=== PATIENT | male | born 1965 | race Caucasian/White ===

== ENCOUNTER 2018-10-14 09:11 | Emergency (ER) | payer OTHER, SELFPAY ==
[2018-10-14 09:11] VITALS: BP 124/100; PULSE 108; RESP 18; TEMP 36.6; O2SAT 99; BMI 21.2
--- NOTE | 2018-10-14 09:45 | RAD_ITS ---
STUDY: X-RAY - RIGHT SHOULDER REASON FOR EXAM: Male, 53 years old. Pain following a lifting injury. TECHNIQUE: 2 view(s) of the shoulder. COMPARISON: None. FINDINGS: Normal glenohumeral articulation. Normal acromioclavicular joint. Normal acromion. Normal humeral head and visualized proximal humerus. The soft tissue structures are unremarkable. Normal visualized pulmonary apex. RAD/Shoulder min 2 Views IMPRESSION: Normal x-ray examination of the shoulder. Electronically Signed: Ten Foley MD at 10:08 EST Tel [phone], Service support ,
--- NOTE | 2018-10-14 10:17 | ED.VISSUMM ---
- ER Visit Summary Date of Service: 10/14/18 Chief Complaint: Right shoulder injury History of Present Illness: The patient is a 53 M [id number] presenting with a right shoulder injury. He bought a new house and was moving an appliance up the steps with his children this weekend and felt a pop in his right shoulder while trying to keep the appliance from falling off of the stairs and pulling to the right. He denies any direct trauma. He has no neck pain or back pain. The pain is mostly on the posterior aspect of his right shoulder and is worse with abduction above 90 degrees. He denies weakness or paresthesias. Physical Examination: Mild tenderness on palpation right shoulder posteriorly. Skin is intact. There is pain with range of motion but no instability or deformity. Strong distal pulse. No neck tenderness or thoracic tenderness. Test Results: Right shoulder x-ray was negative for fracture. Emergency Department Course and Treatment: He was placed on naproxen and Flexeril. He did not want a sling. He was referred to orthopedics for follow-up Treatment Plan: Follow-up with orthopedic surgeon Disposition: Home stable Impression: Initial encounter acute right shoulder strain This note was generated with [employer] dictation software. It may contain incorrect words, spelling, and punctuation that were not noted in review of the chart prior to signing ED Disposition - Plan for ED Patient: Chief Complaint: Back Instructions: Shoulder Problems Prescriptions: Ibuprofen [Motrin] 800 mg PO TID PRN PRN #20 tablet PRN Reason: Pain Cyclobenzaprine [Flexeril] 10 mg PO TID PRN #20 tablet PRN Reason: Muscle Spasm Referrals: Gaston Putnam DO [STAFF PHYSICIAN] -
--- NOTE | 2018-10-14 10:20 | ED.DCSUM_ITS ---
- ER Visit Summary Date of Service: 10/14/18 Chief Complaint: Right shoulder injury History of Present Illness: The patient is a 53 M [id number] presenting with a right shoulder injury. He bought a new house and was moving an appliance up the steps with his children this weekend and felt a pop in his right shoulder while trying to keep the appliance from falling off of the stairs and pulling to the right. He denies any direct trauma. He has no neck pain or back pain. The pain is mostly on the posterior aspect of his right shoulder and is worse with abduction above 90 degrees. He denies weakness or paresthesias. Physical Examination: Mild tenderness on palpation right shoulder posteriorly. Skin is intact. There is pain with range of motion but no instability or deformity. Strong distal pulse. No neck tenderness or thoracic tenderness. Test Results: Right shoulder x-ray was negative for fracture. Emergency Department Course and Treatment: He was placed on naproxen and Flexeril. He did not want a sling. He was referred to orthopedics for follow- up Treatment Plan: Follow-up with orthopedic surgeon Disposition: Home stable Impression: Initial encounter acute right shoulder strain This note was generated with [employer] dictation software. It may contain incorrect words, spelling, and punctuation that were not noted in review of the chart prior to signing ED Disposition - Plan for ED Patient: Chief Complaint: Back Instructions: Shoulder Problems Prescriptions: Ibuprofen [Motrin] 800 mg PO TID PRN PRN #20 tablet PRN Reason: Pain Cyclobenzaprine [Flexeril] 10 mg PO TID PRN #20 tablet PRN Reason: Muscle Spasm Referrals: Gaston Putnam DO [STAFF PHYSICIAN] -
[2018-10-14 11:02] VITALS: PULSE 89; RESP 17; O2SAT 97
--- OUTSIDE RECORDS SUMMARY | 2018-12-07 14:14 | XMS RPT_ITS ---
:1965 Author Organization [facility] Care Team Providers Name Role Phone LISA DUTTON (KIRAN) Attending Unavailable LINDEN BARBOUR Referring Unavailable LISA DUTTON (RAILROAD CAR REPAIRMAN) Attending Unavailable LINDEN BARBOUR Referring Unavailable LISA DUTTON (RAILROAD CAR REPAIRMAN) Referring Unavailable Linden Barbour Primary Care Unavailable Drew Arcos Attending Unavailable PROBLEMS PROBLEMS DATE TYPE CONDITION / CODE ATTENDING STATUS SOURCE 08/15/2018 Active Dizziness and NA Active [facility] giddiness / Main [place] R42(ICD-10) Repository 08/15/2018 Active Diarrhea, NA Active [facility] unspecified / Main [place] R19.7(ICD-10) Repository PROCEDURES PROCEDURES No Procedure Records FoundRESULTS RESULTS EMERGENCY DEPARTMENT Observed: 10/14/2018 Status: F Source: [place] SUMMARY 10:20 AM [facility] REPOSITORY [facility] Medical Records Department [address] [place] [address] Emergency Department Summary 10/14/18 1017 MR#: [id number] Acct: [id number] Name: STACI LR Rep #: [id number] : 1965 53 From: Vignesh Arcos MD PCP: Linden Stover DO Status: REG ER - ER Visit Summary Date of Service: 10/14/18 Chief Complaint: Right shoulder injury History of Present Illness: The patient is a 53 M [id number]-[id number] presenting with a right shoulder injury. He bought a new house and was moving an appliance up the steps with his children this weekend and felt a pop in his right shoulder while trying to keep the appliance from falling off of the stairs and pulling to the right. He denies any direct trauma. He has no neck pain or back pain. The pain is mostly on the posterior aspect of his right shoulder and is worse with abduction above 90 degrees. He denies weakness or paresthesias. Physical Examination: Mild tenderness on palpation right shoulder posteriorly. Skin is intact. There is pain with range of motion but no instability or deformity. Strong distal pulse. No neck tenderness or thoracic tenderness. Test Results: Right shoulder x-ray was negative for fracture. Emergency Department Course and Treatment: He was placed on naproxen and Flexeril. He did not want a sling. He was referred to orthopedics for follow-up Treatment Plan: Follow-up with orthopedic surgeon Disposition: Home stable Impression: Initial encounter acute right shoulder strain This note was generated with [employer] dictation software. It may contain incorrect words, spelling, and punctuation that were not noted in review of the chart prior to signing ED Disposition - Plan for ED Patient: Chief Complaint: Back Instructions: Shoulder Problems Prescriptions: Ibuprofen [Motrin] 800 mg PO TID PRN PRN #20 tablet PRN Reason: Pain Cyclobenzaprine [Flexeril] 10 mg PO TID PRN #20 tablet PRN Reason: Muscle Spasm Referrals: Gaston Putnam DO [STAFF PHYSICIAN] - What to do if you have Problems For any increased pain, shortness of breath, bleeding, nausea or vomiting, chest pain, or any unexpected problems, contact your Primary Care Provider. Call [facility] ([phone]) or report to the closest Emergency Room. Call 911 if necessary. 10/14/18 1020 <Electronically signed by Vignesh Arcos MD> Date Vignesh Arcos MD Cosigner Signature (If Indicated): Date CC: Linden Stover DO SHOULDER MIN 2 VIEWS Observed: 10/14/2018 Status: F Source: [place] 9:38 AM [facility] REPOSITORY [facility] Imaging Services [address] [place] [address] Shoulder min 2 Views MR#: [id number] Acct: [id number] Name: STACI LR Rep #: [id number] : 1965 M 53 From: Ten Foley MD PCP: Linden Stover DO Status: REG ER Study: Shoulder min 2 Views Date of Exam: 10/14/18 Exam# [id number] Ordering Dr: Vignesh Arcos MD STUDY: X-RAY - RIGHT SHOULDER REASON FOR EXAM: Male, 53 years old. Pain following a lifting injury. TECHNIQUE: 2 view(s) of the shoulder. COMPARISON: None. FINDINGS: Normal glenohumeral articulation. Normal acromioclavicular joint. Normal acromion. Normal humeral head and visualized proximal humerus. The soft tissue structures are unremarkable. Normal visualized pulmonary apex. RAD/Shoulder min 2 Views IMPRESSION: Normal x-ray examination of the shoulder. Electronically Signed: Ten Foley MD at 10:08 EST Tel [phone], Service support , CC: Drew Arcos MD; Linden Stover DO Machine Maintenance Technician: Signed CBC AND DIFFERENTIAL Collected: 08/15/2018 Status: F Source: [place] 12:57 PM [facility] REPOSITORY TYPE CODE TESTS RESULT OUT OF REFERENCE UNITS RANGE LAB WBC 3.70-11.00 k/uL WBC High 12.74 LAB RBC 4.20-6.00 m/uL RBC 5.32 LAB HGB 13.0-17.0 g/dL Hemoglobin 15.5 LAB HCT 39.0-51.0 % Hematocrit 46.3 LAB MCV 80.0-100.0 fL MCV 87.0 LAB MCH 26.0-34.0 pG MCH 29.1 LAB MCHC 30.5-36.0 g/dL MCHC 33.5 LAB RDWCV 11.5-15.0 % RDW-CV 13.6 LAB PLTCT 150-400 k/uL Platelet Count 370 LAB MPV 9.0-12.7 fL MPV 10.3 LAB ANEUT % Neut% 63.3 LAB AANEUT 1.45-7.50 k/uL Abs Neut High 8.06 LAB ALYMP % Lymph% 28.4 LAB AALYMP 1.00-4.00 k/uL Abs Lymph 3.62 LAB AMONO % [place]% 6.7 LAB AAMONO <0.87 k/uL Abs [place] 0.85 LAB AEOS % Eosin% 0.5 LAB AAEOS <0.46 k/uL Abs Eosin 0.07 LAB ABASO % Baso% 1.1 LAB AABASO <0.11 k/uL Abs Baso High 0.14 LAB AUNRBC 0 /100 WBC NRBCs 0.0 LAB ABNRBC <0.01 k/uL Absolute nRBC <0.01 LAB DTYP DTYPE Auto Diff Performed By: #### CBCDIF, CMP, TSH #### [facility] Laboratories [address] [place] [address] COMP METABOLIC PANEL Collected: 08/15/2018 Status: F Source: [place] 12:57 PM [facility]IN [facility] REPOSITORY TYPE CODE TESTS RESULT OUT OF REFERENCE UNITS RANGE LAB TP 6.3-8.0 g/dL Protein, Total 7.3 LAB ALB 3.9-4.9 g/dL Albumin 4.5 LAB CA 8.5-10.2 mg/dL Calcium, Total 9.4 LAB TBIL 0.2-1.3 mg/dL Bilirubin, Total 0.5 LAB ALKP 38-113 U/L Alkaline Phosphatase 70 LAB AST 14-40 U/L AST 14 LAB GLU 74-99 mg/dL Glucose High 118 Result Comment: The [place] [employer] (ADA) provides guidance for cutoff values for fasting glucose and random glucose. The ADA defines fasting as no caloric intake for at least 8 hours. Fas ting plasma glucose results between 100 to 125 mg/dL indicate increased risk for diabetes (prediabetes). Fasting plasma glucose results greater than or equal to 126 mg/dL meet the criteria for diagnosis of diabetes. In the absence of unequivocal hyperglycemia, results should be confirmed by repeat testing. In a patient with classic symptoms of hyperglycemia or hyperglycemic crisis, random plasma glucose results greater than or equal to 200 mg/dL meet the criteria for diagnosis of diabetes. Reference: Standards of Medical Care in Diabetes 2016, [place] [employer]. Diabetes Care. 2016.39(Suppl 1). LAB BUN 9-24 mg/dL BUN Low 8 LAB CRET 0.73-1.22 mg/dL Creatinine 0.94 LAB NA 136-144 mmol/L Sodium 141 LAB K 3.7-5.1 mmol/L Potassium 4.0 LAB CL 97-105 mmol/L Chloride 101 LAB CO2 22-30 mmol/L CO2 23 LAB AGAP 9-18 mmol/L Anion Gap 17 LAB ALT 10-54 U/L ALT 17 LAB GFRAA eGFR- Amer. >60 LAB GFRNAA . eGFR-All Other Races >60 Result Comment: eGFR (Estimated GFR) Units of measure: mL/min/1.73 meters squared eGFR is derived from the reexpressed MDRD Study equation using the following parameters: serum creatinine, age, gender and race. The creatinine assay has been calibrated to be traceable to IDMS. An eGFR <60 mL/min/1.73m2 for >3 months is consistent with chronic kidney disease. Refer to KDOQI guidelines for clinical interpretation. In patients with unstable renal function, e.g. those with acute kidney injury, the eGFR may not accurately reflect actual GFR. Performed By: #### CBCDIF, CMP, TSH #### [facility] [address] [place] [id number] TSH Collected: 08/15/2018 Status: F Source: [place] 12:57 PM [facility] REPOSITORY TYPE CODE TESTS RESULT OUT OF RANGE REFERENCE UNITS LAB TSH 0.400-5.500 uU/mL TSH 0.867 Performed By: #### CBCDIF, CMP, TSH #### [facility] [address] [place], [place] [address] PROGRESS Observed: 08/13/2018 Status: COMPLETED Source: [place] 9:02 AM [facility] REPOSITORY HNO ID: [id number] Author: Lisa Brooks (Cullen Dutton Service: (none) Author Type: Nurse Practitioner Type: Progress Notes Filed: 08/13/2018 9:20 AM Note Text: HPI/CC: Staci Lr is a 52 year old male who presents with concern of feeling unbalanced and room was spinning. Started gradually for 7 days. This is something I had in the past and won't go away. Associated symptoms include nausea, vomiting x 1, watery diarrhea and headache, subjective fever, chills, decreased appetite. Denies eyes jumping, palpitations, syncope, ear pain, sore throat, difficulty breathing , urinary symptoms and muscle or joint aches., blood in stools Symptoms are intermittent and last a few minutes and made worse by standing. Symptoms are alleviated by nothing. Recent events include no obvious precipitating event/injury.. Treatments tried include nothing REVIEW OF SYSTEMS As above Reviewed PMHx, PSHx, social Hx, medications and allergies. PHYSICAL EXAMINATION: BP 118/88 Pulse 96 Resp 16 Wt 72.6 kg (160 lb) BMI 21.11 kg/m? General appearance: Well appearing, alert, in no acute distress, well-hydrated, well nourished. Head: Normocephalic, no masses, lesions, tenderness or abnormalities Eyes: Anicteric sclera. Pupils are equally round and reactive to light. Extraocular movements are intact. Ears: External ears normal, canals clear, TM's normal Nose/Sinuses: Nares normal, septum midline, mucosa normal, no drainage or sinus tenderness Oropharynx: Lips, mucosa, and tongue normal, teeth and gums normal, oropharynx normal Neck: Supple, no adenopathy; thyroid symmetric, normal size, no bruits Lungs: Lungs clear to auscultation. No wheezing, rhonchi, rales Heart:: S1 and S2 normal, RRR without murmur, gallop, or rubs. No ectopy Extremities: No deformities, edema, skin discoloration, clubbing or cyanosis. Good capillary refill. Musculoskeletal: Spine range of motion normal. Muscular strength intact, No joint swelling, deformity, or tenderness Peripheral pulses: Normal Neuro: Awake, alert and oriented x 3, Cranial nerves II-XII grossly intact, Reflexes symmetrical, Normal gait and No involuntary motions. ASSESSMENT/PLAN: 1. Viral gastroenteritis - ICD9: 008.8, ICD10: A08.4 - encourage fluids and rest - see patient instructions - work excuse provided - ONDANSETRON 4 MG DISINTEGRATING TABLET Lisa Dutton APRN.CNP CNOV Observed: 08/13/2018 Status: COMPLETED Source: [place] 8:20 AM [facility] REPOSITORY [facility] STACI [facility] ([id number]) 1965 M Date Time Provider Department 08/13/18 8:20 AM L[facility] DUTTON [facility]KIRAN) [facility] During your visit today, we recorded the following information about you: Pulse Respiration Blood pressure Weight 96/minute 16/minute 118/88 72.6 kg Lisa Dutton APRN.CNP 08/13/2018 9:20 AM Signed HPI/CC: Staci Lr is a 52 year old male who presents with concern of feeling unbalanced and room was spinning. Started gradually for 7 days. This is something I had in the past and won't go away. Associated symptoms include nausea, vomiting x 1, watery diarrhea and headache, subjective fever, chills, decreased appetite. Denies eyes jumping, palpitations, syncope, ear pain, sore throat, difficulty breathing , urinary symptoms and muscle or joint aches., blood in stools Symptoms are intermittent and last a few minutes and made worse by standing. Symptoms are alleviated by nothing. Recent events include no obvious precipitating event/injury.. Treatments tried include nothing REVIEW OF SYSTEMS As above Reviewed PMHx, PSHx, social Hx, medications and allergies. PHYSICAL EXAMINATION: BP 118/88 Pulse 96 Resp 16 Wt 72.6 kg (160 lb) BMI 21.11 kg/m? General appearance: Well appearing, alert, in no acute distress, well-hydrated, well nourished. Head: Normocephalic, no masses, lesions, tenderness or abnormalities Eyes: Anicteric sclera. Pupils are equally round and reactive to light. Extraocular movements are intact. Ears: External ears normal, canals clear, TM's normal Nose/Sinuses: Nares normal, septum midline, mucosa normal, no drainage or sinus tenderness Oropharynx: Lips, mucosa, and tongue normal, teeth and gums normal, oropharynx normal Neck: Supple, no adenopathy; thyroid symmetric, normal size, no bruits Lungs: Lungs clear to auscultation. No wheezing, rhonchi, rales Heart:: S1 and S2 normal, RRR without murmur, gallop, or rubs. No ectopy Extremities: No deformities, edema, skin discoloration, clubbing or cyanosis. Good capillary refill. Musculoskeletal: Spine range of motion normal. Muscular strength intact, No joint swelling, deformity, or tenderness Peripheral pulses: Normal Neuro: Awake, alert and oriented x 3, Cranial nerves II-XII grossly intact, Reflexes symmetrical, Normal gait and No involuntary motions. ASSESSMENT/PLAN: 1. Viral gastroenteritis - ICD9: 008.8, ICD10: A08.4 - encourage fluids and rest - see patient instructions - work excuse provided - ONDANSETRON 4 MG DISINTEGRATING TABLET ALIDA Avila APRN.CNP 08/13/2018 9:13 AM Signed Home instructions for Viral Gastroenteritis TREATMENT - Drink 6-8 or more 8 ounce glasses of non-carbonated beverages to stay hydrated. - Eat a bland diet until your symptoms resolve. A bland diet may include boiled starches, boiled vegetables, cereals, crackers, bananas, soup, plain rice, or applesauce. BRAT DIET (may eat any of the following as tolerated) Bananas Applesauce Wink Saltine Crackers Animal Crackers Pretzels Oatmeal Unsweetened Dry Cereal (Rice Krispies, Cheerios) Plain Baked or Boiled Potato Plain White Rice Plain Noodles All clear liquid listed below CLEAR LIQUID DIET (need to drink 2 ounces total every half hour) Broth Jello Popsicles Pedialyte Gatorade NO Juices NO Milk NO Dairy Products Call if urine output is decreased or you develop dry mucous membranes, or lethargy. - If you do not have a fever you may take lopermide (Immodium) or (Bismuth subsalicylate (Pepto-Bismol) over the counter as instructed on box label. - Rest - Take your temperature every 4 hours while you have symptoms. CONTACT YOUR DOCTOR OR GO TO THE EMERGENCY DEPARTMENT IF: - Your pain gets worse or concentrates in only one area. - You vomit blood or find blood in your stool or urine. - You are dizzy or faint. - Your abdomen becomes swollen or your bowel movements stop. - You have a temperature over 102 F (39 C). - You have trouble passing urine. - You feel short of breath. PREVENTION - Wash your hands before and after using the bathroom, before and after preparing food, after changing a diaper or assisting others with bathroom needs. Please follow up in 3-5 days or before if symptoms are worse. Lisa Dutton APRN.RAILROAD CAR REPAIRMAN Referring Provider: LINDEN BARBOUR [[id number]] Allergies As of Date: 08/13/2018 Noted Allergy Reaction DARVOCET-N 100 (PROPOXYPHENE N-AC*03/07/2010 7 - Swelling Comments: pt stated swelling of throat PREVACID (LANSOPRAZOLE) 10/30/2005 Comments: cause increased stomach pain and headache TRAMADOL 03/15/2011 8 - GI Upset 14 - Other: See Comments Comments: dizziness VICODIN (HYDROCODONE-ACETAMINOPHE*03/15/2011 8 - GI Upset Date Reviewed: 08/13/2018 Reviewed by: Lenin Vicente LPN - Fully Assessed Reason for Visit: Dizziness [36] Cmt: started last week, worse in the last 3 days Nausea [70] Cmt: with vomiting x1 yesterday Anorexia [7] Primary Visit Diagnosis:Viral gastroenteritis [A08.4] Order(s):ondansetron orally disintegrating (ZOFRAN ODT) 4 mg disintegrating tabletTake 1 tablet by mouth every 6 hours as needed for Nausea/Vomiting.Disp: 30 tabletRfl: 0 Prescriptions as of 08/13/2018 Sig: ONDANSETRON 4 MG DISINTEGRATI* Take 1 tablet by mouth every * Problem List As Of Date 08/13/2018 Noted Resolved STERILIZATION [Z30.2] INVALID FOR* Tear of Medial Cartilage or Meniscus of Knee, C*INVALID FOR* Brachial neuritis or radiculitis NOS [M54.12] INVALID FOR* Chronic neck pain [M54.2, G89.29] INVALID FOR* DDD (degenerative disc disease), cervical [M50.*INVALID FOR* Cervical spondylosis [M47.812] INVALID FOR* Other instructions from your clinician: Home instructions for Viral Gastroenteritis TREATMENT - Drink 6-8 or more 8 ounce glasses of non-carbonated beverages to stay hydrated. - Eat a bland diet until your symptoms resolve. A bland diet may include boiled starches, boiled vegetables, cereals, crackers, bananas, soup, plain rice, or applesauce. BRAT DIET (may eat any of the following as tolerated) Bananas Applesauce Wink Saltine Crackers Animal Crackers Pretzels Oatmeal Unsweetened Dry Cereal (Rice Krispies, Cheerios) Plain Baked or Boiled Potato Plain White Rice Plain Noodles All clear liquid listed below CLEAR LIQUID DIET (need to drink 2 ounces total every half hour) Broth Jello Popsicles Pedialyte Gatorade NO Juices NO Milk NO Dairy Products Call if urine output is decreased or you develop dry mucous membranes, or lethargy. - If you do not have a fever you may take lopermide (Immodium) or (Bismuth subsalicylate (Pepto-Bismol) over the counter as instructed on box label. - Rest - Take your temperature every 4 hours while you have symptoms. CONTACT YOUR DOCTOR OR GO TO THE EMERGENCY DEPARTMENT IF: - Your pain gets worse or concentrates in only one area. - You vomit blood or find blood in your stool or urine. - You are dizzy or faint. - Your abdomen becomes swollen or your bowel movements stop. - You have a temperature over 102 F (39 C). - You have trouble passing urine. - You feel short of breath. PREVENTION - Wash your hands before and after using the bathroom, before and after preparing food, after changing a diaper or assisting others with bathroom needs. Please follow up in 3-5 days or before if symptoms are worse. Lisa Dutton APRN.KIRAN Prescriptions ordered this encounter Disp Refills Start End ONDANSETRON 4 MG DISINTEGRATING TABL* 30 t* 0 08/13/2018 Route: ORAL Sig: Take 1 tablet by mouth every 6 hours as needed for Nausea/Vomiting. Letter Text Lisa Dutton CNP [address] [place], [place] [address] 08/13/2018 Staci Lr [facility]# [id number] [facility] [address] [place] [address] TO WHOM IT MAY CONCERN: This is to certify that Mr. Staci Lr has been under my care for illness and was unable to work from 08/11/2018 through 08/15/2018. Sincerely yours, Lisa Dutton CNP Encounter Status:Closed by LISA DUTTON CNP on 08/13/18 PROGRESS Observed: 01/23/2018 Status: COMPLETED Source: [place] 11:07 AM [facility] REPOSITORY H[place] ID: [id number] Author: Lisa Brooks (Kiran) KIRAN Dutton Service: (none) Author Type: Nurse Practitioner Type: Progress Notes Filed: 01/23/2018 11:11 AM Note Text: This note was created using Bracketr. Subjective Patient is a 52 year old male presenting with neck pain and back pain. Neck Pain Associated symptoms include weakness (to right UE). Pertinent negatives include no fever, leg pain, numbness, paresis, tingling or weight loss. Back Pain This is a new (acute on chronic) problem. Episode onset: 5 days ago. The problem occurs constantly. The problem has not changed since onset.The pain is associated with lifting heavy objects. Pain location: cervical. The quality of the pain is described as shooting and cramping. The pain does not radiate. The pain is moderate. The symptoms are aggravated by twisting and certain positions. Associated symptoms include weakness (to right UE). Pertinent negatives include no fever, no numbness, no weight loss, no bowel incontinence, no perianal numbness, no dysuria, no pelvic pain, no leg pain, no paresis and no tingling. He has tried nothing for the symptoms. Hx of DDD with cervical spine sx Review of Systems Constitutional: Negative for fever and weight loss. Gastrointestinal: Negative for bowel incontinence. Genitourinary: Negative for dysuria and pelvic pain. Musculoskeletal: Positive for back pain and neck pain. Neurological: Positive for weakness (to right UE). Negative for tingling and numbness. Objective BP 120/82 Pulse 96 Resp 16 Wt 73.5 kg (162 lb) BMI 21.37 kg/m2 Physical Exam Constitutional: He is oriented to person, place, and time. He appears well-developed and well-nourished. No distress. HENT: Head: Normocephalic and atraumatic. Eyes: Conjunctivae are normal. Neck: Normal range of motion. Cardiovascular: Normal rate, regular rhythm, S1 normal, S2 normal and normal heart sounds. No murmur heard. Pulmonary/Chest: Effort normal and breath sounds normal. Neurological: He is alert and oriented to person, place, and time. No cranial nerve deficit. Gait normal. ASSESSMENT/PLAN: 1. Neck pain - ICD9: 723.1, ICD10: M54.2 (primary diagnosis) 2. Chronic neck pain - ICD9: 723.1, 338.29, ICD10: M54.2, G89.29 Acute on chronic neck pain - PREDNISONE 10 MG TABLET - CYCLOBENZAPRINE 10 MG TABLET - recommend CPE for HM and routine care Lisa Dutton CNP CNOV Observed: 01/23/2018 Status: COMPLETED Source: [place] 11:00 AM [facility] REPOSITORY Office Visit ([facility]) STACI LR ([id number]) 1965 M Date Time Provider Department 01/23/18 11:00 AM LISA DUTTON (KIRAN) [facility] During your visit today, we recorded the following information about you: Pulse Respiration Blood pressure Weight 96/minute 16/minute 120/82 73.5 kg Lisa Dutton CNP, CNP 01/23/2018 11:11 AM Signed This note was created using alife studios incriter. Subjective Patient is a 52 year old male presenting with neck pain and back pain. Neck Pain Associated symptoms include weakness (to right UE). Pertinent negatives include no fever, leg pain, numbness, paresis, tingling or weight loss. Back Pain This is a new (acute on chronic) problem. Episode onset: 5 days ago. The problem occurs constantly. The problem has not changed since onset.The pain is associated with lifting heavy objects. Pain location: cervical. The quality of the pain is described as shooting and cramping. The pain does not radiate. The pain is moderate. The symptoms are aggravated by twisting and certain positions. Associated symptoms include weakness (to right UE). Pertinent negatives include no fever, no numbness, no weight loss, no bowel incontinence, no perianal numbness, no dysuria, no pelvic pain, no leg pain, no paresis and no tingling. He has tried nothing for the symptoms. Hx of DDD with cervical spine sx Review of Systems Constitutional: Negative for fever and weight loss. Gastrointestinal: Negative for bowel incontinence. Genitourinary: Negative for dysuria and pelvic pain. Musculoskeletal: Positive for back pain and neck pain. Neurological: Positive for weakness (to right UE). Negative for tingling and numbness. Objective BP 120/82 Pulse 96 Resp 16 Wt 73.5 kg (162 lb) BMI 21.37 kg/m2 Physical Exam Constitutional: He is oriented to person, place, and time. He appears well-developed and well-nourished. No distress. HENT: Head: Normocephalic and atraumatic. Eyes: Conjunctivae are normal. Neck: Normal range of motion. Cardiovascular: Normal rate, regular rhythm, S1 normal, S2 normal and normal heart sounds. No murmur heard. Pulmonary/Chest: Effort normal and breath sounds normal. Neurological: He is alert and oriented to person, place, and time. No cranial nerve deficit. Gait normal. ASSESSMENT/PLAN: 1. Neck pain - ICD9: 723.1, ICD10: M54.2 (primary diagnosis) 2. Chronic neck pain - ICD9: 723.1, 338.29, ICD10: M54.2, G89.29 Acute on chronic neck pain - PREDNISONE 10 MG TABLET - CYCLOBENZAPRINE 10 MG TABLET - recommend CPE for HM and routine care Lisa Dutton CNP Referring Provider: LINDEN BARBOUR [[id number]] Allergies As of Date: 01/23/2018 Noted Allergy Reaction DARVOCET-N 100 (PROPOXYPHENE N-AC*03/07/2010 7 - Swelling Comments: pt stated swelling of throat PREVACID (LANSOPRAZOLE) 10/30/2005 Comments: cause increased stomach pain and headache TRAMADOL 03/15/2011 8 - GI Upset 14 - Other: See Comments Comments: dizziness VICODIN (HYDROCODONE-ACETAMINOPHE*03/15/2011 8 - GI Upset Date Reviewed: 01/23/2018 Reviewed by: Lenin Vicente LPN - Fully Assessed Reason for Visit: Neck Pain [135] Cmt: x 5 days Primary Visit Diagnosis:Neck pain [M54.2] Other Visit Diagnosis:Chronic neck pain [M54.2, G89.29] Order(s):predniSONE (DELTASONE) 10 mg tabletTake 60mg x 3 days, 40mg x 3 days, 20mg x 3 days, 10mg x 3 days. Take with food.Disp: 39 tabletRfl: 0 cyclobenzaprine (FLEXERIL) 10 mg tabletTake 1 tablet by mouth twice daily as needed for Muscle Spasm.Disp: 60 tabletRfl: 0 Prescriptions as of 01/23/2018 Sig: PREDNISONE 10 MG TABLET Take 60mg x 3 days, 40mg x 3 * CYCLOBENZAPRINE 10 MG TABLET Take 1 tablet by mouth twice * Problem List As Of Date 01/23/2018 Noted Resolved STERILIZATION [Z30.2] INVALID FOR* Tear of Medial Cartilage or Meniscus of Knee, C*INVALID FOR* Brachial neuritis or radiculitis NOS [M54.12] INVALID FOR* Chronic neck pain [M54.2, G89.29] INVALID FOR* DDD (degenerative disc disease), cervical [M50.*INVALID FOR* Cervical spondylosis [M47.812] INVALID FOR* Prescriptions ordered this encounter Disp Refills Start End PREDNISONE 10 MG TABLET 39 t* 0 01/23/2018 Sig: Take 60mg x 3 days, 40mg x 3 days, 20mg x 3 days, 10mg x 3 days. Take with food. CYCLOBENZAPRINE 10 MG TABLET 60 t* 0 01/23/2018 Route: ORAL Sig: Take 1 tablet by mouth twice daily as needed for Muscle Spasm. Medications Discontinued During This Encounter ondansetron (ZOFRAN) 4 mg tablet 10 t* 0 03/17/2015 01/23/2018 Route: ORAL Sig: Take 1 tablet by mouth every 8 hours as needed for Nausea/Vomiting. Disc: Reason for discontinue is not on file. cyclobenzaprine (FLEXERIL) 5 mg tabl* 12 t* 0 09/25/2017 01/23/2018 Route: ORAL Sig: Take 1 tablet by mouth three times daily as needed. Disc: Reason for discontinue is not on file. Letter Text Lisa Dutton CNP [address] [place], [place] [address] 01/23/2018 Staci Lr CC# [id number] [address] [place], [place] [id number] TO WHOM IT MAY CONCERN: This is to certify that Mr. Staci Lr has been under my care for injury and was unable to work from 01/21/2018 through 01/25/2018. May return to work without restrictions on 01/28/2018 Sincerely yours, Lisa Dutton CNP Encounter Status:Closed by LISA DUTTON CNP on 01/23/18 ALLERGIES ALLERGIES DATE TYPE / CODE NAME / CODE REACTION SEVERITY SOURCE 10/14/2018 Drug No Known Unknown [place] Allergy/416 Allergies/[id number] [facility] [id number](SNOM 8(RXNORM) Hospital ED CT) Repository 03/15/2011 DRUG TRAMADOL GI UPSET [facility]/[address] [place] [address] [id number](SNOM Repository ED CT) 03/15/2011 DRUG/[id number] HYDROCODONE-ACETAMI GI UPSET [facility] 003(SNOMED NOPHEN [address]) Repository 03/07/2010 DRUG/[id number] PROPOXYPHENE SWELLING [facility] 003(SNOMED N-ACETAMINOPHEN [facility]) Repository 10/30/2005 DRUG LANSOPRAZOLE [facility]/[address] [place] [address] [id number](SNOM Repository ED CT) ENCOUNTERS ENCOUNTERS ADMIT/DISCHARGE ACCOUNT ADMITTING ENCOUNTER LOCATION SOURCE NUMBER CLASS 10/14/2018/10/14/20 [id number] Emergency [address] ing:ED Repository 08/15/2018/08/15/20 [id number] Ambulatory [address] Repository 08/13/2018/08/14/20 [id number] Ambulatory [address] Repository 01/23/2018/01/25/20 [id number] Ambulatory [address] Repository PAYERS PAYERS ENCOUNTER GUARANTOR PAYER SUBSCRIBER SOURCE 10/14/2018 STACI H Primary STACI Alejandro [id number] [id number] [address]Cmj: Number: Repository [id number] (HP) Date:[id number] [address]LF: 10/14/2018 Secondary NOT GIVENUNK [place] Insurance:SELF PAY [facility] Number: Effective Repository Date:2018-10-14
== END 2018-10-14 11:03 | disposition home or self-care (01) ==
PROVIDERS: Emergency Provider Emergency Medicine; Family Provider Student in an Organized Health Care Education/Training Program; PCP Student in an Organized Health Care Education/Training Program
DX: S46.911A Strain of unspecified muscle, fascia and tendon at shoulder and upper arm level, right arm, initial encounter (principal); X58.XXXA Exposure to other specified factors, initial encounter; Y93.E6 Activity, residential relocation; Y92.9 Unspecified place or not applicable
CPT/HCPCS: 73030; 99282

== ENCOUNTER 2019-07-07 00:53 | Emergency (ER) | payer OTHER, SELFPAY ==
[2019-07-07 00:53] VITALS: BP 146/107; PULSE 89; RESP 15; TEMP 36.6; O2SAT 97; BMI 21.7
--- NOTE | 2019-07-07 01:54 | ED.DCSUM_ITS ---
- ER Visit Summary Date of Service: 07/07/19 Chief Complaint: Dental pain History of Present Illness: The patient is a 53 M who presents with dental pain that has been getting worse over the past 3 days. Patient states he had an extraction last week but the pain has gotten worse over the past 3 days. Leyda ent describes the pain is sharp and stabbing. Patient states the pain is over the left lower molar area. Patient denies any fevers or chills. Patient denies any hot or cold sensitivity. Patient denies any facial or jaw swelling. Physical Examination: Vital signs are stable. Patient is afebrile. Patient is in no acute distress. Oral mucosa is pink and moist. Oropharynx is clear. There is some edema and tenderness over the gingiva of the left lower molar area. There is no evidence of a dry socket. The extraction site appears to be healing well. There is no erythema. There is no abscess formation. There is no sublingual edema. Airway is patent. Neck is supple. Trachea is midline. There is no JVD noted. Emergency Department Course and Treatment: Patient was given a prescription for Pen-Vee K. Patient was given his first dose here. Patient was instructed to take Tylenol or ibuprofen as needed for pain. Patient was instructed to follow- up with his dentist in 5 to 7 days. Patient understood and was agreeable with the plan. All questions were answered. Disposition: Discharge home Impression: Odontalgia This note was generated with [employer] dictation software. It may contain incorrect words, spelling, and punctuation that were not noted in review of the chart prior to signing ED Disposition - Plan for ED Patient: Disposition: Home or Assisted Living Diagnosis: Odontalgia Instructions: Dental Pain Prescriptions: Penicillin V Potassium 500 mg PO 4X/DAY #40 tab Prescription Printed Referrals: Linden Barbour DO [Primary Care Provider] - 5-7 Days
[2019-07-07 01:58] VITALS: BP 146/107; PULSE 89; RESP 15; O2SAT 97
[2019-07-07] MEDS: Penicillin Vk 250 MG Tablet 500 MG PO (02:05)
== END 2019-07-07 02:14 | disposition home or self-care (01) ==
PROVIDERS: Emergency Provider Emergency Medicine; Family Provider Student in an Organized Health Care Education/Training Program; PCP Student in an Organized Health Care Education/Training Program
DX: K08.89 Other specified disorders of teeth and supporting structures (principal); Z72.0 Tobacco use
CPT/HCPCS: 99283

== ENCOUNTER 2020-03-08 20:12 | Emergency (ER) | payer MEDICAID, SELFPAY ==
[2020-03-08 20:13] VITALS: BP 145/96; PULSE 127; RESP 16; TEMP 36.8; O2SAT 96; BMI 21.2
--- NOTE | 2020-03-08 20:21 | ED.VIS.GEN ---
History of Present Illness Chief Complaint: Wound Informant: Patient Onset: Today Context: Sudden Onset Timing: Continuous Current Severity: Moderate Maximum Severity: Moderate Narrative: The patient is an otherwise healthy 54-year-old male, unsure of his last tetanus, who presents with right hand injury. Patient states he was outdoors with his dog. He tripped and fell. He landed with an outstretched right hand on a piece of wood with a nail. The nail went through his hand and out the back. He was able to remove the nail and irrigated his hand copiously with peroxide. He has had some pain. He denies any numbness or tingling in the hand. He denies any difficulty making a fist. Patient is otherwise been in his normal state of health. Prior similar symptoms: No Recent Illness/Hospitalization: No Past Medical History - Allergies and Home Meds Allergies/Adverse Reactions: Allergies No Known Allergies Allergy (Verified 03/08/20 20:15) Primary Care Physician: Linden Barbour DO [Primary Care Provider] - Prior records reviewed: Yes Past Medical History: None Surgical History: no surgical history Smoking Status: Current every day smoker Review of Systems General: Denies: Chills, Fever, Sweats Eyes: Denies: Visual changes - bilaterally, Diplopia ENT: Denies: Rhinorrhea, Sore throat Cardiovascular: Denies: Chest pain, Palpitations Respiratory: Denies: Dyspnea, Cough, Dyspnea on exertion Gastrointestinal: Denies: Abdominal pain, Nausea, Vomiting, Diarrhea, Melena, Hematochezia Genitourinary: Denies: Dysuria, Hematuria, Frequency Musculoskeletal: Denies: Back pain, Extremity Pain Skin: Denies: Rash, Wounds Neurological: Denies: Headache, Weakness, Numbness Physical Exam Vital Signs/Narrative: Vital Signs Temp Pulse Resp BP Pulse Ox 03/08/20 20:13 98.3 F 127 H 16 145/96 H 96 Inital Vital Signs reviewed: Yes General: Well nourished, Well developed, No Acute Distress Head: Normocephalic, Atraumatic Eyes: Perrl, EOMI ENT: Moist mucous membranes, No rhinorrhea Neck: Supple, Nontender Cardiovascular: Regular rate, Regular rhythm, No murmurs Respiratory: No distress, CTA bilaterally, Chest nontender Abdomen: Soft, Nontender, Nondistended, Normal bowel sounds Back: Nontender, Normal Inspection Extremities: No edema, Tenderness - Puncture wound on right palm approximately 3 cm proximal to the second MCP joint with exit on the dorsum between the second and third MCP P. Skin: Normal color, No rash Neurological: Alert, Oriented x3, Cranial nerves II-XII grossly intact, Normal Strength, Normal Sensation Psychological: Normal affect, Normal Mood Diagnostic/Tx/Re-eval - Medical Decision Making The patient presents with right hand puncture wound. There is no active bleeding. He has already irrigated the wound. Plain films were obtained which showed no evidence of bony disruption. The patient be given a short course of analgesics and antibiotics. He was counseled on infectious symptoms and having his wound reevaluated. If he cannot follow-up with his primary care, he should return here and he is comfortable with this plan of care. Impression 1. Right hand puncture wound ED Disposition - Plan for ED Patient: Instructions: ED Wound Puncture General Prescriptions: Cephalexin [Keflex] 500 mg PO Q6 #40 cap Prescription Printed Hydrocodone Bitart/Apap 5-325 [Witter 5MG-325MG] 1 tab PO Q6H PRN PRN 3 Days #10 tab PRN Reason: Pain Prescription Printed Referrals: Linden Barbour DO [Primary Care Provider] -
--- NOTE | 2020-03-08 20:23 | RAD_ITS ---
STUDY: X-RAY - RIGHT HAND REASON FOR EXAM: Male, 54 years old. Punctured the hand on a nail. TECHNIQUE: 3 view(s) of the hand. COMPARISON: None. FINDINGS: Normal radiocarpal articulation. Normal distal radioulnar joint. Normal visualized carpal bones. Normal carpal articulations Normal carpometacarpal articulation of the thumb. Normal second through fifth carpometacarpal joints. Normal metacarpi. Normal metacarpophalangeal joint of the thumb. Normal interphalangeal joint of the thumb. Normal proximal and distal phalanges of the thumb. Normal metacarpophalangeal joints of the second through fifth fingers. Normal proximal and distal interphalangeal joints of the second through fifth fingers. Normal phalanges of the second through fifth fingers. There is mild palmar soft tissue swelling. There is no opaque foreign body. RAD/Hand Min 3 Views IMPRESSION: Palmar soft tissue swelling without osseous abnormality or foreign body. Electronically Signed: Suleiman Xiong DO at 20:48 EDT Tel [phone], Service support ,
[2020-03-08] MEDS: Cephalexin 250 MG Capsule 500 MG PO (20:58)
[2020-03-08] MEDS: HYDROcodone Bitartrate/Apap 5/325 Tablet PO (20:58)
[2020-03-08] MEDS: Diphth,Pertuss(Acell),Tet Vac 0.5 ML Vial IM (20:59)
[2020-03-08 21:06] VITALS: PULSE 80; RESP 16
== END 2020-03-08 21:21 | disposition home or self-care (01) ==
LOC: ED 21:11
PROVIDERS: Emergency Provider Emergency Medicine; PCP Student in an Organized Health Care Education/Training Program
DX: S61.431A Puncture wound without foreign body of right hand, initial encounter (principal); F17.200 Nicotine dependence, unspecified, uncomplicated; W19.XXXA Unspecified fall, initial encounter
CPT/HCPCS: 73130; 90471; 90715; 99283

== ENCOUNTER 2020-09-05 12:22 | Emergency (ER) | payer MEDICAID, SELFPAY ==
[2020-09-05 12:23] VITALS: BP 145/87; PULSE 82; RESP 17; TEMP 36.2; O2SAT 99; BMI 21.7
--- NOTE | 2020-09-05 12:49 | ED.VIS.GEN ---
History of Present Illness Chief Complaint: Cold Sx Informant: Patient Narrative: 54-year-old male presenting with cough and congestion for the past few days. Dates that he is not allowed to work because he has a cough. He states a few days ago he had a vomiting episode but has not vomited since. He is eating and drinking normally. Is making normal urine and stool. He does not have myalgias. He does not have loss of taste or smell. He has not had a fever that he knows of. He does not have chest pain or shortness of breath. Past Medical History - Allergies and Home Meds Allergies/Adverse Reactions: Allergies No Known Allergies Allergy (Verified 09/05/20 12:22) Primary Care Physician: Linden Barbour DO [Primary Care Provider] - Past Medical History: - - Patient denies medical history Surgical History: no surgical history Lives: With Family Smoking Status: Current every day smoker Alcohol: None Drugs: None Review of Systems General: Reports: Malaise. Denies: Chills, Fever Eyes: Denies: Visual changes - bilaterally, Diplopia ENT: Reports: Rhinorrhea, Sore throat Cardiovascular: Denies: Chest pain, Palpitations Respiratory: Reports: Cough. Denies: Dyspnea, Sputum, Dyspnea on exertion Gastrointestinal: Reports: Nausea, Vomiting Genitourinary: Denies: Dysuria, Hematuria, Frequency Musculoskeletal: Denies: Back pain, Extremity Pain Skin: Denies: Rash, Wounds Neurological: Denies: Headache, Weakness, Numbness Physical Exam Vital Signs/Narrative: Vital Signs Temp Pulse Resp BP Pulse Ox 09/05/20 12:23 97.2 F L 82 17 145/87 H 99 Inital Vital Signs reviewed: Yes General: Well nourished, No Acute Distress Head: Normocephalic, Atraumatic Eyes: Perrl, EOMI ENT: Moist mucous membranes, Nasal congestion Cardiovascular: Regular rate, Regular rhythm Respiratory: No distress, CTA bilaterally Skin: Normal color, No rash. Negative for: Cyanosis, Diaphoresis Neurological: Alert, Oriented x3 Psychological: Normal affect, Normal Mood Diagnostic/Tx/Re-eval - Medical Decision Making 54-year-old male presenting ER for evaluation given that he has had cough and congestion for the last few days. He states he is not allowed to work because he has a cough. He wishes to be tested for Covid?19. Patient is only having very mild symptoms. He is nontoxic-appearing. His vital signs are normal. Patient was tested for Covid?19 and discharged home. He is given strict return and isolation precautions. Patient acknowledges understanding. Impression: 1. Viral syndrome ED Disposition - Plan for ED Patient: Disposition: Home or Assisted Living Instructions: ED Upper Resp Infec No Abx Tx Referrals: Linden Barbour DO [Primary Care Provider] -
[2020-09-05 12:52] VITALS: O2SAT 99
== END 2020-09-05 13:22 | disposition home or self-care (01) ==
LOC: ED 13:08
PROVIDERS: Emergency Provider Student in an Organized Health Care Education/Training Program; PCP Student in an Organized Health Care Education/Training Program
DX: B34.9 Viral infection, unspecified (principal); F17.200 Nicotine dependence, unspecified, uncomplicated
CPT/HCPCS: 87635; 99281; U0003

== ENCOUNTER 2022-06-07 11:57 | Emergency (ER) | payer MEDICAID, SELFPAY ==
[2022-06-07 11:57] VITALS: BP 185/104; PULSE 83; RESP 14; TEMP 36.7; O2SAT 98; BMI 22.4
--- NOTE | 2022-06-07 12:16 | EDS_ITS ---
HPI History of Present Illness Chief Complaint: Lower Extremity Injury Informant: patient Narrative Narrative: Twisting injury left knee over the weekend going down steps. Swelling coming down since he had leftover prednisone. However pain worsened in the mornings and with prolonged. States knee would catch and lock on him. Similar with his right knee 10 years ago with a meniscus injury repaired in [place]. Been using ibuprofen last dose this morning. However pain is worsening in the mornings. He would like to follow-up with orthopedics here. Prior similar symptoms: Yes PFSH PFSH Medical History (Updated 06/07/22 @ 13:[address] Nghia Kumar DO) Degenerative disc disease Home Medications oxycodone-acetaminophen 5 mg-325 mg tablet (Percocet) 1 tab PO Q6H PRN pain 3 days #12 tabs 06/07/22 [Rx Last Taken Unknown] Allergy/AdvReac Type Severity Reaction Status Date / Time No Known Allergies Allergy Verified 06/07/22 11:59 Surgical History (Updated 06/07/22 @ 12:27 by Tez Barba) Status post right knee replacement Social History Smoking Status: Never smoker ROS ROS ED Constitutional Constitutional ED: Denies chills, fever(s) or sweats Eyes Eyes: Denies change in vision ENT ENT ED: Denies dysphagia or sore throat Cardiovascular Cardiovascular: Denies chest pain, leg edema, palpitations or racing heartbeat Respiratory/Chest Respiratory/Chest: Denies cough, dyspnea or dyspnea on exertion Gastrointestinal Gastrointestinal: Denies abdominal pain, diarrhea, nausea or vomiting Genitourinary Genitourinary ED: Denies dysuria, hematuria or urinary frequency Musculoskeletal Musculoskeletal: Reports extremity pain and other Details: Left knee injury ; Denies back pain or neck pain Integumentary Denies rash or wounds Neurologic Neurologic: Denies headache(s), paresthesias or weakness EXAM Physical Exam Const Vital Signs: 06/07/22 11:57 06/07/22 13:11 Temperature 98.0 F 98.4 F Temperature Source Temporal Pulse Rate 83 88 Respiratory Rate 14 14 Blood Pressure 185/104 H 134/78 H Blood Pressure Mean 131 Pulse Ox 98 100 Oxygen Delivery Method Room Air Positive well nourished and well developed General Appearance ED: well developed and NAD HEENT Reports moist mucous membranes normocephalic and atraumatic Eyes PERRL, EOMs intact bilaterally and conjunctivae normal General Eye ED: Yes normal appearance of both eyes Neck no lymphadenopathy and supple General: Negative for tenderness Chest Wall Chest: Negative for tenderness Resp normal respiratory effort and normal air movement Effort and Inspection: symmetric chest movement; Negative for respiratory di stress Cardio regular rate, regular rhythm and no murmurs Peripheral Pulses: pulses 2+ throughout GI normal to inspection, nondistended, normoactive bowel sounds and non-tender Palpation: Negative for guarding or rebound tenderness present Back/Spine no CVA tenderness and no thoracic nor lumbar tenderness Extremity Extremity Narrative: Left knee: Negative logroll, extensor mechanism intact. Negative varus and v algus. Positive Ole's. No swelling. Skin intact. Neuro vas intact. General Extremety ED: Yes tenderness; Negative for edema General Extremity: Negative for edema Neuro oriented x3 and no sensory deficits noted Sensorium / Orientation: awake and alert Skin no rashes or lesions noted and no wounds MDM MDM MDM Narrative Medical decision making narrative: Patient took ibuprofen prior to arrival. 4 view x-ray left knee reviewed by myself and read by radiology noted degenerative changes at the patellar however the spacing was normal. History and exam concerning for meniscal injury. He uses an Jamel wrap. We will continue ibuprofen short prescription for oxycodone. He is tolerated in the past. He is given follow-up with orthopedics locally as he wishes to stay around here. All questions were answered. Radiography Diagnostic Testing: Clinical Impression(s) from Imaging Studies Knee X-Ray 06/07/22 12:35 IMPRESSION: Normal x-ray examination of the knee. Degenerative tearing along the superior anterior aspect of the patella Electronically Signed: Ten Foley MD at 13:02 EDT Reading Location ID and State: [facility] / [place] , Service support , Discharge Plan Triage Chief Complaint: Lower Extremity Injury ED Provider: Nghia Kumar Dx/Rx/DC Orders Clinical Impression: Acute traumatic internal derangement of left knee, Acute pain of left knee Instructions: ED Meniscal Injury Knee Poss Prescriptions: New oxycodone-acetaminophen [Percocet] 5-325 mg tablet 1 tab PO Q6H PRN (Reason: pain) 3 Days Qty: 12 0RF Primary Care Provider: Linden Barbour Referrals: Linden Barbour DO [Primary Care Provider] - Trell Lopez MD [Med Staff - Active Staff] - 3-5 Days Activity Restrictions/Additional Instructions: History and exam concerns for meniscus injury. Follow-up with Dr. Lopez. Continue ibuprofen and Jamel wrap. Oxycodone as needed. Disposition Disposition: Home, Self Care Discharge Date/Time: 06/07/22 13:25
--- NOTE | 2022-06-07 12:35 | RAD_ITS ---
STUDY: X-RAY - LEFT KNEE REASON FOR EXAM: Male, 56 years old. Knee pain following a recent injury. TECHNIQUE: 4 view(s) of the knee. COMPARISON: None. FINDINGS: Normal visualized distal femur. Normal visualized proximal tibia and fibula. Normal proximal tibiofibular articulation. Normal medial femorotibial compartment. Normal lateral femorotibial compartment. Normal patellofemoral articulation. Degenerative spurring at the level of the insertion of the quadriceps tendon. The soft tissue structures are unremarkable. RAD/Knee 4 or More Views IMPRESSION: Normal x-ray examination of the knee. Degenerative tearing along the superior anterior aspect of the patella Electronically Signed: Ten Foley MD at 13:02 EDT ,
[2022-06-07 13:11] VITALS: BP 134/78; PULSE 88; RESP 14; TEMP 36.9; O2SAT 100
== END 2022-06-07 13:25 | disposition home or self-care (01) ==
PROVIDERS: Emergency Provider Emergency Medicine; PCP Student in an Organized Health Care Education/Training Program; Visit Provider Emergency Medicine
DX: M23.92 Unspecified internal derangement of left knee (principal); M25.562 Pain in left knee; X50.1XXA Overexertion from prolonged static or awkward postures, initial encounter
CPT/HCPCS: 73564; 99282

== ENCOUNTER 2023-02-04 13:30 | Emergency (ER) | payer MEDICAID, SELFPAY ==
[2023-02-04 13:31] VITALS: BP 144/94; PULSE 111; RESP 18; TEMP 36.2; O2SAT 97; BMI 22.3
--- NOTE | 2023-02-04 14:07 | CT_ITS ---
STUDY: CT BRAIN WITHOUT CONTRAST REASON FOR EXAM: Male, 57 years old. head injury RADIATION DOSAGE (If Supplied By Facility): CTDIvol = ( 47.06 ) mGy, DLP = ( 907.97 ) mGycm TECHNIQUE: Transaxial CT imaging of the brain was performed without administration of intravenous contrast material. Individualized dose optimization techniques were used for this CT. COMPARISON: No relevant priors. FINDINGS: Normal soft tissue structures. Normal calvarium. Normal size ventricles and extra-axial spaces for the patient''s age. Normal white matter tracts of the cerebral hemispheres. Normal basal ganglia and thalami. Normal brainstem. Normal cerebellum. There is no intracranial hemorrhage. There are no findings of an acute ischemic infarction. There is mucoperiosteal inflammatory disease of the paranasal sinuses consistent with mild chronic sinusitis. CT/Brain/Head without Contrast IMPRESSION: Normal unenhanced CT scan of the brain. Electronically Signed: Riccardo Abebe MD at 15:09 EDT ,
--- NOTE | 2023-02-04 14:07 | CT_ITS ---
STUDY: CT CERVICAL SPINE WITHOUT CONTRAST REASON FOR EXAM: Male, 57 years old. neck pain RADIATION DOSAGE (If Supplied By Facility): CTDIvol = ( 17.62 ) mGy, DLP = ( 376.93 ) mGycm TECHNIQUE: High resolution transaxial imaging was performed without contrast material. Sagittal and coronal images were reconstructed. Individualized dose optimization techniques were used for this CT. COMPARISON: None FINDINGS: Normal craniovertebral junction. There are degenerative changes of the anterior atlantoaxial articulation. Normal odontoid process. Normal cervical lordosis. Normal vertebral bodies and posterior osseous elements. C2-3: Normal endplates. Normal disc height and morphology. Normal central canal and intervertebral neuroforamina. C3-4: Normal endplates. Normal disc height and morphology. Normal central canal and intervertebral neuroforamina. C4-5: Mild broad disc osteophyte complex asymmetric to the right produces mild spinal stenosis and mild right neural foraminal stenosis. C5-6: Mild broad disc osteophyte complex produces mild spinal stenosis and mild bilateral neural foraminal stenosis. C6-7: Status post anterior cervical discectomy and fusion with bony bridging with anatomic alignment with no spinal stenosis or neural foraminal stenosis. C7-T1: Normal endplates. Normal disc height and morphology. Normal central canal and intervertebral neuroforamina. Normal visualized soft tissue structures. CT/Spine Cervical without Contras IMPRESSION: No acute fracture or subluxation. Electronically Signed: Riccardo Abebe MD at 15:15 EDT ,
--- NOTE | 2023-02-04 14:08 | EDS_ITS ---
HPI History of Present Illness Chief Complaint: Head Injury Narrative Narrative: 57-year-old male presenting with head injury. Patient states he works at the [employer]. He states that last night they noticed a leak downstairs and the power was out. He went upstairs to try to determine the source of the leak and found it in the attic and states that pipette busted. He states that he went running to get a part and hit himself in the head with a pipe and knocked himself down on the platform he was walking on. He is not sure if he lost consciousness or not. When he got up he did go downstairs. He states that he had conversations with people that he does not recall. When he went to work today people were telling him about how odd he was acting last night. He does not recall any of this. Patient has a mild headache. He has an abrasion to the top of his head. He states he had some swelling which is now gone down because is icing it all day. Denies nausea, vomiting, lightheadedness, dizziness. He does complain of neck pain however. He states that his neck hurts after he fell yesterday. He has history of surgery and plates in his C-spine. Denies any paresthesias. [facility] Medical History Degenerative disc disease Home Medications oxycodone-acetaminophen 5 mg-325 mg tablet (Percocet) 1 tab PO Q6H PRN pain 3 days #12 tabs 06/07/22 [Rx Last Taken Unknown] Allergy/AdvReac Type Severity Reaction Status Date / Time No Known Allergies Allergy Verified 06/07/22 11:59 Surgical History Status post right knee replacement Social History Smoking Status: Current some day smoker tobacco type: cigarettes ROS ROS ED Constitutional Constitutional ED: Denies chills, fever(s) or sweats Eyes Eyes: Denies blurry vision or change in vision ENT ENT ED: Denies ear pain or sore throat Cardiovascular Cardiovascular: Denies chest pain, palpitations or racing heartbeat Respiratory/Chest Respiratory/Chest: Denies cough, dyspnea or sputum Gastrointestinal Gastrointestinal: Denies abdominal pain, constipation, diarrhea, nausea or vomiting Genitourinary Genitourinary ED: Denies dysuria, hematuria or urinary frequency Musculoskeletal Musculoskeletal: Reports neck pain; Denies arthralgias or myalgias Integumentary Reports Abrasions; Denies abscess or rash Neurologic Neurologic: Reports headache(s); Denies paresthesias or weakness Psychiatric Psychiatric: Denies anxiety, depression, suicidal ideation or suicidal thoughts Endocrine Endocrinology: Denies polydipsia or polyuria EXAM Physical Exam Const Vital Signs: 02/04/23 13:31 02/04/23 13:39 Temperature 97.1 F L Temperature Source Temporal Pulse Rate 111 H Respiratory Rate 18 Respiratory Effort Normal Respiratory Depth Normal Respiratory Pattern Normal Blood Pressure 144/94 H Blood Pressure Mean 110 Pulse Ox 97 Oxygen Delivery Method Room Air Room Air Positive well nourished General Appearance ED: NAD HEENT HEENT Narrative: 5 cm superficial abrasion on the scalp Eyes PERRL and EOMs intact bilaterally Resp normal respiratory effort Cardio regular rhythm Extremity normal to inspection Neuro oriented x3, CN's II-XII intact bilaterally, moves all extremities, no focal motor deficits and no sensory deficits noted Sensorium / Orientation: alert Motor Exam: strength 5/5 throughout Skin no rashes or lesions noted and no wounds Skin Narrative: 5 cm superficial abrasion on the scalp. No laceration. No skull deformity. No induration. MDM MDM MDM Narrative Medical decision making narrative: Patient presenting with head injury from last evening. He does not recall most of last evening. He is not on any blood thinners. He is concerned about the time he lost last night. Neurologically he is intact. No focal neurologic deficits or lateralizing signs or symptoms. His superficial abrasion on scalp but states his swelling in his scalp is gone down. Differential at this point includes concussion, intracranial hemorrhage, C-spine fracture, cervical strain. Patient declines analgesia. CT brain and cervical spine ordered. CT brain and cervical spine are negative for acute findings. Patient well-appearing. He declines analgesia. Counseled on the likely has a mild concussion. Return prec autions were discussed. Impression: 1. Closed head injury 2. Concussion 3. Scalp abrasion Radiography Diagnostic Testing: Clinical Impression(s) from Imaging Studies Brain CT 02/04/23 14:07 IMPRESSION: Normal unenhanced CT scan of the brain. Electronically Signed: Riccardo Abebe MD at 15:09 EDT , Cervical Spine CT 02/04/23 14:07 IMPRESSION: No acute fracture or subluxation. Electronically Signed: Riccardo Abebe MD at 15:15 EDT , Discharge Plan Triage Chief Complaint: Head Injury ED Provider: Monty Laguna Dx/Rx/DC Orders Instructions: ED Concussion Prescriptions: No Action oxycodone-acetaminophen [Percocet] 5-325 mg tablet 1 tab PO Q6H PRN (Reason: pain) 3 Days Qty: 12 0RF Primary Care Provider: Linden Barbour Referrals: Linden Barbour DO [Primary Care Provider] - Disposition Disposition: Home, Self Care
== END 2023-02-04 16:21 | disposition home or self-care (01) ==
PROVIDERS: Emergency Provider Student in an Organized Health Care Education/Training Program; PCP Student in an Organized Health Care Education/Training Program; Visit Provider Student in an Organized Health Care Education/Training Program
DX: S06.0X0A Concussion without loss of consciousness, initial encounter (principal); S00.01XA Abrasion of scalp, initial encounter; F17.210 Nicotine dependence, cigarettes, uncomplicated; X58.XXXA Exposure to other specified factors, initial encounter
CPT/HCPCS: 70450; 72125; 99283; A4216

== ENCOUNTER 2023-10-08 12:42 | Emergency (ER) | payer MEDICAID, SELFPAY ==
[2023-10-08 12:43] VITALS: BP 119/82; PULSE 104; RESP 16; TEMP 36.4; O2SAT 97; BMI 21.1
--- NOTE | 2023-10-08 14:39 | RAD_ITS ---
STUDY: X-RAY - LUMBAR SPINE REASON FOR EXAM: Male, 58 years old. Injury. TECHNIQUE: 3 view(s) of the lumbar spine were obtained. COMPARISON: None FINDINGS: Normal lumbar lordosis. There is no substantial scoliosis. There is a normal alignment of the vertebrae. Diffuse mild lower thoracic and lumbosacral facet sclerosis. Diffuse mild intervertebral disc space narrowing with small osteophytes at L1-2, L2-3 and L3-4. Normal soft tissues. RAD/Lumbar Spine 2 or 3 Views IMPRESSION: Mild lower lumbosacral spondylosis. Electronically Signed: Peter Davis MD at 15:03 EST ,
--- NOTE | 2023-10-08 15:59 | EDS_ITS ---
HPI History of Present Illness Chief Complaint: Back Informant: patient Onset/Context/Timing Onset: Days Context: Sudden Onset Injury: fall Timing: Continuous Quality: Sharp and Burning Location: Lumbar and Buttock Worsened by: improves with Movement Relieved by: Remaining Still Associated Symptoms Associated Symptoms: Numbness and Radiation to Left Leg; Negative for Tingling, Radiation to Right Leg, Fever, Abdominal Pain, Dysuria, Unable to Ambulate, Unab le to Transfer, Urinary Retention, Urinary Incontinence, Constipation or Fecal Incontinence Narrative Narrative: Patient presents with back pain that began after a fall 3 to 4 days ago. Patient states he slipped and fell and landed on his buttocks. Patient states he has had pain in his low back since the fall. Patient states it is constant. Patient states it is sharp and burning. Patient states it is worse with certain movements and better with rest. Patient states he occasionally gets some pain and burning down his left leg. Patient denies any bowel or bladder changes. Patient denies any saddle anesthesia. PFSH [facility] Medical History (Updated 10/08/23 @ 17:[address] Richard Laurent DO) Degenerative disc disease Home Medications oxycodone-acetaminophen 5 mg-325 mg tablet (Percocet) 1 tab PO Q6H PRN pain 3 days #12 tabs 06/07/22 [Rx Last Taken Unknown] Allergy/AdvReac Type Severity Reaction Status Date / Time No Known Allergies Allergy Verified 06/07/22 11:59 Surgical History (Updated 10/08/23 @ 17:[address] Richard Laurent DO) Hx of cholecystectomy Hx of fusion of cervical spine Hx of thumb surgery Hx of tonsillectomy Status post right knee replacement Social History Smoking Status: Current some day smoker tobacco type: cigarettes ROS ROS ED Constitutional Constitutional ED: Denies chills or fever(s) Eyes Eyes: Denies blurry vision or change in vision ENT ENT ED: Denies rhinorrhea or sore throat Cardiovascular Cardiovascular: Denies chest pain or palpitations Respiratory/Chest Respiratory/Chest: Denies cough or dyspnea Gastrointestinal Gastrointestinal: Denies nausea or vomiting Genitourinary Genitourinary ED: Denies dysuria or hematuria Musculoskeletal Musculoskeletal: Reports back pain; Denies neck pain Integumentary Denies abscess or rash Neurologic Neurologic: Denies headache(s) or weakness Allergic/Immunologic Allergic/Immunologic ED: Denies mouth swelling or urticaria EXAM Physical Exam Const Vital Signs: 10/08/23 12:43 10/08/23 16:28 Temperature 97.5 F L Temperature Source Temporal Pulse Rate 104 H 72 Respiratory Rate 16 15 Blood Pressure 119/82 H 134/69 H Blood Pressure Mean 94 90 Pulse Ox 97 98 Oxygen Delivery Method Room Air Positive well nourished and well developed General Appearance ED: well developed and NAD HEENT Reports moist mucous membranes Neck supple and no JVD Back/Spine Back/Spine Narrative: There is tenderness over the lumbar spine and paraspinal muscles. There is mild midline tenderness. There is no bony crepitance or step-off. Range of motion was limited in all motions of the lumbar spine secondary to pain. Strength is 5/5 bilaterally lower extremities. There are no sensory deficits noted. Deep tendon reflexes are 2/4 bilaterally in the lower extremities. Straight leg raises were negative bilaterally. Lumbar Spine / Lower Back: ROM limited and straight leg raise negative bilaterally Extremity normal to inspection Neuro oriented x3 and no sensory deficits noted Sensorium / Orientation: alert Motor Exam: strength 5/5 throughout Deep Tendon Reflexes: Rt Patellar (L4): 2+, Lt Patellar (L4): 2+, Rt Ankle (S1): 2+ and Lt Ankle (S1): 2+ Deep Tendon Reflexes Back: Rt Patellar (L4): 2+, Lt Patellar (L4): 2+, Rt Ankle (S1): 2+ and Lt Ankle (S1): 2+ Skin no rashes or lesions noted MDM MDM MDM Narrative Medical decision making narrative: Differential diagnosis includes lumbar compression fracture and lumbosacral strain. X-rays of the lumbar spine will be obtained to assess for lumbar compression fracture and spondylolisthesis. Radiography Diagnostic Testing: Clinical Impression(s) from Imaging Studies Lumbar Spine X-Ray 10/08/23 14:39 IMPRESSION: Mild lower lumbosacral spondylosis. Electronically Signed: Peter Davis MD at 15:03 EST , X-rays of the lumbar spine were obtained. There are 3 views. On my independent interpretation, there is no acute fracture. There are some degenerative changes noted. Radiologist also interpreted the x-rays and agrees. Treatment and Re-Evaluation Narrative: Patient was advised of his findings. Patient was instructed to use ice to the area. Patient was given restrictions for work. Patient was instructed to take Tylenol or ibuprofen as needed for pain. Patient was instructed to follow-up with his primary care physician in 5 to 7 days. Patient was instructed return if worse in any way. Patient understood and was agreeable with the plan. All questions were answered. Discharge Plan Triage Chief Complaint: Back ED Provider: Richard Laurent Dx/Rx/DC Orders Clinical Impression: Acute lumbosacral myofascial strain, Fall Instructions: ED Back Sprain/Strain Prescriptions: No Action oxycodone-acetaminophen [Percocet] 5-325 mg tablet 1 tab PO Q6H PRN (Reason: pain) 3 Days Qty: 12 0RF Stand Alone Forms: Work Status Form Primary Care Provider: Linden Barbour Referrals: Linden Barbour, DO [Primary Care Provider] - 5-7 Days Disposition Disposition: Home, Self Care Discharge Date/Time: 10/08/23 16:29
[2023-10-08 16:28] VITALS: BP 134/69; PULSE 72; RESP 15; O2SAT 98
== END 2023-10-08 16:29 | disposition home or self-care (01) ==
PROVIDERS: Emergency Provider Emergency Medicine; PCP Student in an Organized Health Care Education/Training Program; Visit Provider Emergency Medicine
DX: S39.012A Strain of muscle, fascia and tendon of lower back, initial encounter (principal); F17.210 Nicotine dependence, cigarettes, uncomplicated; W19.XXXA Unspecified fall, initial encounter
CPT/HCPCS: 72100; 99282

== ENCOUNTER 2024-12-04 10:44 | Emergency (ER) | payer MEDICAID, SELFPAY ==
[2024-12-04 10:45] VITALS: BP 135/85; PULSE 91; RESP 16; TEMP 36.7; O2SAT 98; BMI 21.1
--- NOTE | 2024-12-04 11:12 | CT_ITS ---
STUDY: CT BRAIN WITHOUT CONTRAST REASON FOR EXAM: Male, 59 years old. Trauma, s/p fall 2 days ago, hx-cervical fusion RADIATION DOSAGE (If Supplied By Facility): CTDIvol = ( 44.99 ) mGy, DLP = ( 829.85 ) mGycm TECHNIQUE: Transaxial CT imaging of the brain was performed without administration of intravenous contrast material. Individualized dose optimization techniques were used for this CT. COMPARISON: Comparison is made with prior study dated February 04, 2023. FINDINGS: Normal soft tissue structures. Normal calvarium. Normal size ventricles and extra-axial spaces for the patient''s age. Normal white matter tracts of the cerebral hemispheres. Normal basal ganglia and thalami. Normal brainstem. Normal cerebellum. There is no intracranial hemorrhage. There are no findings of an acute ischemic infarction. Partial opacification of the left maxillary sinus. Partial opacification of the ethmoid sinus. CT/Brain/Head without Contrast IMPRESSION: Normal unenhanced CT scan of the brain. Partial opacification of the left maxillary sinus and ethmoid sinuses. Electronically Signed: Ten Foley MD at 11:57 EST ,
--- NOTE | 2024-12-04 11:12 | CT_ITS ---
STUDY: CT CERVICAL SPINE WITHOUT CONTRAST REASON FOR EXAM: Male, 59 years old. Trauma, s/p fall 2 days ago, hx-cervical fusion RADIATION DOSAGE (If Supplied By Facility): CTDIvol = ( 20.48 ) mGy, DLP = ( 456.59 ) mGycm TECHNIQUE: High resolution transaxial imaging was performed without contrast material. Sagittal and coronal images were reconstructed. Individualized dose optimization techniques were used for this CT. COMPARISON: Comparison is made with prior study February 04, 2023. FINDINGS: Normal craniovertebral junction. Normal anterior atlantoaxial articulation. Normal odontoid process. Normal cervical lordosis. Normal vertebral bodies and posterior osseous elements. C2-3: Normal endplates. Normal disc height and morphology. Normal central canal and intervertebral neuroforamina. C3-4: Normal endplates. Normal disc height and morphology. Normal central canal and intervertebral neuroforamina. C4-5: Mild degree of disc space narrowing. Mild diffuse posterior disc bulge worse on the right side of midline. This is unchanged. C5-6: Moderate degree of disc space narrowing. Spondylosis. Mild degree bilateral neural foraminal stenosis. C6-7: The patient is status anterior post fusion with screw and plate fixation. C7-T1: Normal endplates. Normal disc height and morphology. Normal central canal and intervertebral neuroforamina. Normal visualized soft tissue structures. CT/Spine Cervical without Contras IMPRESSION: Multilevel degenerative changes, as described above. Stable examination. Electronically Signed: Ten Foley MD at 12:02 EST ,
--- NOTE | 2024-12-04 11:16 | EX.ED.GENINJ ---
HPI History of Present Illness Chief Complaint: Other, Pain/Inj Informant: patient Narrative Narrative: 59-year-old male presenting to the emergency room with neck pain. Patient notes he has a history of having 2 plates put into his neck about 6 years ago at [facility]. He is unsure of the surgeon. 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 He slipped and fell and injured his neck. He has had pain tickly on the right side since then. He notes that the fingertips of the fingers are less sensate they normally are. He denies any muscle strength loss. He denies any sensory changes of the rest of the digits forearm or arm. No nausea vomiting. He does not take a blood thinner. PFSH PFS Medical History Degenerative disc disease Home Medications ?Medication ?Instructions ?Recorded ?Last Taken ?Type oxycodone-acetaminophen 5 mg-325 1 tab PO Q6H PRN pain 3 days #12 06/07/22 Unknown Rx mg tablet (Percocet) tabs cyclobenzaprine 10 mg tablet 10 mg PO TID PRN Muscle Spasm #15 12/04/24 Unknown Rx TABLETS oxycodone-acetaminophen 5 mg-325 1 tab PO Q6H PRN pain 3 days #12 12/04/24 Unknown Rx mg tablet (Percocet) tabs Allergy/AdvReac Type Severity Reaction Status Date / Time No Known Allergies Allergy Verified 12/04/24 10:47 Surgical History Hx of thumb surgery Hx of fusion of cervical spine Hx of tonsillectomy Hx of cholecystectomy Status post right knee replacement Social History Smoking Status: Current some day smoker tobacco type: cigarettes ROS ROS ED Constitutional Constitutional ED: Denies chills or weight loss Eyes Eyes: Denies change in vision or diplopia ENT ENT ED: Denies ear pain, rhinorrhea or sore throat Cardiovascular Cardiovascular: Denies chest pain, orthopnea, palpitations or racing heartbeat Respiratory/Chest Respiratory/Chest: Denies cough, dyspnea or orthopnea Gastrointestinal Gastrointestinal: Denies abdominal pain, diarrhea, nausea or vomiting Genitourinary Genitourinary ED: Denies dysuria, hematuria or urinary frequency Musculoskeletal Musculoskeletal: Reports neck pain; Denies arthralgias, back pain or myalgias Integumentary Denies abscess or rash Neurologic Neurologic: Reports headache(s) and paresthesias RUE (see hpi); Denies weakness Psychiatric Psychiatric: Denies anxiety, depression, suicidal ideation or suicidal thoughts Endocrine Endocrinology: Denies polydipsia, polyphagia or polyuria Allergic/Immunologic Allergic/Immunologic ED: Denies mouth swelling, tongue swelling or urticaria EXAM Physical Exam Const Vital Signs: 12/04/24 10:45 12/04/24 11:28 Temperature 98.1 F Temperature Source Temporal Pulse Rate 91 Respiratory Rate 16 Respiratory Effort Normal Respiratory Pattern Normal Blood Pressure 135/85 H Blood Pressure Mean 101 Pulse Ox 98 Oxygen Delivery Method Room Air Positive well nourished and well developed General Appearance ED: well developed HEENT Reports normocephalic, head/scalp atraumatic and moist mucous membranes Eyes PERRL and EOMs intact bilaterally Neck full ROM, no lymphadenopathy, supple and no JVD Neck Narrative: diffuse right sided neck ttp General: tenderness Resp normal respiratory effort and clear to auscultation bilaterally Cardio regular rate, regular rhythm and no murmurs GI normal to inspection, nondistended, normoactive bowel sounds and non-tender Palpation: soft Back/Spine no CVA tenderness and normal ROM Extremity normal to inspection General Extremety ED: Negative for edema General Extremity: Negative for edema Neuro oriented x3 and CN's II-XII intact bilaterally Neuro Narrative: Reported decreased sensation of the fingertips including the thumb of the right hand Roxanna Coma Scale: document GCS findings Spontaneous Obeys Commands Oriented 15 Sensorium / Orientation: alert Motor Exam: strength 5/5 throughout Psych mental status grossly normal Mood & Affect: Negative for depressed or tearful Skin no rashes or lesions noted and no wounds MDM MDM MDM Narrative Medical decision making narrative: Differential diagnosis includes fracture cervical spine fracture intracranial hemorrhage hematoma cervical radiculopathy cervical disc patient CT of the brain does not demonstrate fracture or intracranial hemorrhage. CT of the cervical spine does not show any loosening of the hardware or fracture. Clinically the patient is intact minus the fingertip paresthesias that he described. However they do not fit a particular nerve distribution. Patient will be discharged home with muscle relaxant pain medication. Follow-up in 14 days if not improving return if worsening History & Record Review Discussion w/independent historian: Patient Radiography Diagnostic Testing: Clinical Impression(s) from Imaging Studies Brain CT 12/04/24 11:12 IMPRESSION: Normal unenhanced CT scan of the brain. Partial opacification of the left maxillary sinus and ethmoid sinuses. Electronically Signed: Ten Foley MD at 11:57 EST , Cervical Spine CT 12/04/24 11:12 IMPRESSION: Multilevel degenerative changes, as described above. Stable examination. Electronically Signed: Ten Foley MD at 12:02 EST , Discharge Plan Triage Chief Complaint: Other, Pain/Inj ED Provider: Marcos Solis Dx/Rx/DC Orders Clinical Impression: Acute cervical myofascial strain, Fall, Head injury Instructions: ED Neck Sprain or Strain Prescriptions: New cyclobenzaprine 10 mg tablet 10 mg PO TID PRN (Reason: Muscle Spasm) Qty: 15 0RF oxycodone-acetaminophen [Percocet] 5-325 mg tablet 1 tab PO Q6H PRN (Reason: pain) 3 Days Qty: 12 0RF No Action oxycodone-acetaminophen [Percocet] 5-325 mg tablet 1 tab PO Q6H PRN (Reason: pain) 3 Days Qty: 12 0RF Primary Care Provider: Linden Barbour Referrals: Linden Barbour, [Primary Care Provider] - 10-14 Days if not better Print Language: Yi Disposition Disposition: Home, Self Care
[2024-12-04 12:18] VITALS: BP 127/87; PULSE 95; RESP 16; TEMP 36.7; O2SAT 98
== END 2024-12-04 12:20 | disposition home or self-care (01) ==
PROVIDERS: Emergency Provider Emergency Medicine; PCP Student in an Organized Health Care Education/Training Program; Visit Provider Emergency Medicine
DX: S16.1XXA Strain of muscle, fascia and tendon at neck level, initial encounter (principal); S09.90XA Unspecified injury of head, initial encounter; F17.210 Nicotine dependence, cigarettes, uncomplicated; W19.XXXA Unspecified fall, initial encounter
CPT/HCPCS: 70450; 72125; 99283

== ENCOUNTER 2025-02-09 12:58 | Emergency (ER) | payer MEDICAID, SELFPAY ==
[2025-02-09 12:59] VITALS: BP 165/80; PULSE 96; RESP 18; TEMP 36.1; O2SAT 99; BMI 21.1
--- NOTE | 2025-02-09 13:10 | EKG12_ITS ---
Test Reason : EB Blood Pressure : */* mmHG Vent. Rate : 84 BPM Atrial Rate : 84 BPM P-R Int : 164 ms QRS Dur : 80 ms QT Int : 360 ms P-R-T Axes : 67 65 66 degrees QTcB Int : 425 ms Normal sinus rhythm Normal ECG Confirmed by CHAPIS NORRIS, JESSICA ([id number]), tape editor LISA MELARA ([id number]) on 02/10/2025 8:38:18 AM Referred By: Marcos Solis Confirmed By: JESSICA NATION MD
--- NOTE | 2025-02-09 13:14 | ED.VIS.CHEST ---
HPI History of Present Illness Chief Complaint: Chest Pain Informant: patient Narrative Narrative: 59-year-old male presenting to the emergency room with chief complaint of chest pain. Patient states that on Sunday he was installing a fuel filter in his truck. He developed some pain in the left anterior shoulder. He also noted a tightness across the anterior chest that seem to radiate towards that shoulder. Its gotten a little worse on Sunday today was concerned it could potentially be cardiac so he came to the emergency. He denies any dyspnea. He does note a cough stating that he had flu last week. He notes that the cough is better. He denies any known cardiac history. He has had prior neck surgery in [place]. [facility] Medical History Degenerative disc disease Home Medications ?Medication ?Instructions ?Recorded ?Last Taken ?Type oxycodone-acetaminophen 5 mg-325 1 tab PO Q6H PRN pain 3 days #12 06/07/22 Unknown Rx mg tablet (Percocet) tabs cyclobenzaprine 10 mg tablet 10 mg PO TID PRN Muscle Spasm #15 12/04/24 Unknown Rx TABLETS oxycodone-acetaminophen 5 mg-325 1 tab PO Q6H PRN pain 3 days #12 12/04/24 Unknown Rx mg tablet (Percocet) tabs oxycodone-acetaminophen 5 mg-325 1 tab PO Q6H PRN pain 3 days #12 02/09/25 Unknown Rx mg tablet (Percocet) tabs prednisone 20 mg tablet 60 mg (3 x 20 mg) PO DAILY #15 02/09/25 Unknown Rx TABLETS Allergy/AdvReac Type Severity Reaction Status Date / Time No Known Allergies Allergy Verified 12/04/24 10:47 Family History no significant family his Surgical History Hx of thumb surgery Hx of fusion of cervical spine Hx of tonsillectomy Hx of cholecystectomy Status post right knee replacement Social History Smoking Status: Current some day smoker tobacco type: cigarettes ROS ROS ED Constitutional Constitutional ED: Denies chills, fever(s) or weight loss Eyes Eyes: Denies change in vision or diplopia ENT ENT ED: Denies ear pain, rhinorrhea or sore throat Cardiovascular Cardiovascular: Reports as per HPI and chest pain; Denies orthopnea, palpitations or racing heartbeat Respiratory/Chest Respiratory/Chest: Reports cough; Denies dyspnea or orthopnea Gastrointestinal Gastrointestinal: Denies abdominal pain, diarrhea, nausea or vomiting Genitourinary Genitourinary ED: Denies dysuria, hematuria or urinary frequency Musculoskeletal Musculoskeletal: Reports other Details: Left shoulder pain ; Denies arthralgias or myalgias Integumentary Denies abscess or rash Neurologic Neurologic: Denies headache(s) or weakness Psychiatric Psychiatric: Denies anxiety, depression, suicidal ideation or suicidal thoughts Endocrine Endocrinology: Denies polydipsia, polyphagia or polyuria Allergic/Immunologic Allergic/Immunologic ED: Denies mouth swelling, tongue swelling or urticaria EXAM Physical Exam Const Vital Signs: 02/09/25 12:59 02/09/25 13:31 02/09/25 13:55 Temperature 96.9 F L Temperature Source Temporal Pulse Rate 96 87 Respiratory Rate 18 16 Respiratory Effort Normal Non-Labored Blood Pressure 165/80 H 140/85 H Blood Pressure Mean 108 103 Pulse Ox 99 97 Oxygen Delivery Method Room Air Room Air 02/09/25 14:56 02/09/25 14:57 Temperature 96.9 F L Temperature Source Pulse Rate 84 67 Respiratory Rate 13 14 Respiratory Effort Blood Pressure 178/107 H 121/81 H Blood Pressure Mean 130 94 Pulse Ox 97 97 Oxygen Delivery Method Room Air Positive well nourished and well developed General Appearance ED: well developed HEENT Reports normocephalic, head/scalp atraumatic and moist mucous membranes Eyes PERRL and EOMs intact bilaterally Neck no lymphadenopathy, supple and no JVD Chest Wall Chest Narrative: Mildly tender on the left anterior chest wall Resp normal respiratory effort and clear to auscultation bilaterally Cardio regular rate, regular rhythm and no murmurs Peripheral Pulses: pulses 2+ throughout GI normal to inspection, nondistended, normoactive bowel sounds and non-tender Palpation: soft Back/Spine no CVA tenderness and normal ROM Extremity Extremity Narrative: Tender to palpation over the proximal left biceps tendon near insertion. General Extremety ED: Negative for edema General Extremity: Negative for edema Neuro oriented x3 and CN's II-XII intact bilaterally Sensorium / Orientation: alert Motor Exam: strength 5/5 throughout Psych mental status grossly normal Mood & Affect: Negative for depressed or tearful Skin no rashes or lesions noted and no wounds MDM MDM MDM Narrative Medical decision making narrative: Differential diagnosis includes tendinitis shoulder strain chest wall strain costochondritis acute coronary syndrome pneumonia pleurisy pleural effusion pulmonary embolism aortic dissection My independent interpretation of the chest x-ray is no acute process. Changes associated with COPD are noted. EKG is nonischemic and normal sinus at 84. Troponin is less than 6 and this is greater than 24 hours of symptomology. CBC BMP otherwise show a glucose of 115. Clinically I think the patient can be discharged home. I do not think this dissection I do not think this is embolism. I think the patient has a biceps tendinitis and probably a chest wall strain from his activity on Sunday. I will write for him to have some prednisone as well as a few Percocet. He is asked for work note which I think is reasonable. Patient to return if worsening or concerns History & Record Review Discussion w/independent historian: Patient Lab Data Attestation: I reviewed the patient's lab results. Labs: Laboratory Results - last 24 hr 02/09/25 13:25 WBC 10.9 RBC 4.68 Hgb 14.1 Hct 41.4 MCV 88.5 MCH 30.1 MCHC 34.1 RDW Std Deviation 42.4 RDW Coeff of Mariano 13.1 Plt Count 294 MPV 9.8 Immature Gran % (Auto) 0.400 Neut % (Auto) 53.3 Lymph % (Auto) 31.9 [place] % (Auto) 9.5 Eos % (Auto) 3.8 Baso % (Auto) 1.1 H Absolute Neuts (auto) 5.8 Absolute Lymphs (auto) 3.46 Nucleated RBC % 0 Sodium 135 Potassium 4.3 Chloride 101 Carbon Dioxide 21.6 Anion Gap 12 BUN 12 Creatinine 0.83 Estim Creat Clear Calc 99.77 Est GFR (MDRD) Non-Af 102 BUN/Creatinine Ratio 14.8 Glucose 115 H Calcium 9.1 Troponin T High Sens < 6 Radiography Diagnostic Testing: Clinical Impression(s) from Imaging Studies Chest X-Ray 02/09/25 13:35 IMPRESSION: COPD. No acute findings. Reading Location: [place] [id number] EKG Initial EKG: Attestation: I personally reviewed and interpreted this EKG as follows: Comments: Normal sinus rhythm ventricular rate of [address] segments are noted Discharge Plan Triage Chief Complaint: Chest Pain ED Provider: Marcos Solis Dx/Rx/DC Orders Clinical Impression: Chest pain, Biceps tendinitis Instructions: ED Chest Pain, Noncardiac, ED Tendonitis Prescriptions: New prednisone 20 mg tablet 60 mg PO DAILY Qty: 15 0RF oxycodone-acetaminophen [Percocet] 5-325 mg tablet 1 tab PO Q6H PRN (Reason: pain) 3 Days Qty: 12 0RF No Action oxycodone-acetaminophen [Percocet] 5-325 mg tablet 1 tab PO Q6H PRN (Reason: pain) 3 Days Qty: 12 0RF cyclobenzaprine 10 mg tablet 10 mg PO TID PRN (Reason: Muscle Spasm) Qty: 15 0RF oxycodone-acetaminophen [Percocet] 5-325 mg tablet 1 tab PO Q6H PRN (Reason: pain) 3 Days Qty: 12 0RF Primary Care Provider: Linden Barbour Referrals: Linden Barbour DO [Primary Care Provider] - 1 Week if not improving Print Language: Mosotho Disposition Disposition: Home, Self Care Discharge Date/Time: 02/09/25 15:05
[2025-02-09] MEDS: Ketorolac 30 MG/ML Syringe IV (13:25)
--- NOTE | 2025-02-09 13:35 | RAD_ITS ---
PROCEDURE: CHEST 1 VIEW (PORTABLE) 02/09/2025 REASON FOR EXAM: CHEST PAIN TECHNIQUE: Frontal view of the chest. COMPARISON: None FINDINGS: Hardware: EKG electrodes are seen. Heart: Cardiac and mediastinal contours are stable. Lungs: Hyperinflation. Findings suggestive of COPD. Bones: Degenerative changes are identified within the thoracic spine. Prior lower cervical fusion. RAD/Chest 1 View (Portable) IMPRESSION: COPD. No acute findings. Reading Location: [place] [id number]
[2025-02-09 13:37] LABS: Absolute Lymphocyte Count 3.46 X10^3/uL (0.83-4.51); Absolute Neutrophil Count 5.8 X10^3/uL (2.0-7.7); Basophil# 0.12 X10^3/uL; Basophil% 1.1 % (0-1); Eosinophil# 0.41 X10^3/uL; Eosinophils% 3.8 % (0-5); Hematocrit 41.4 % (40-54); Hemoglobin 14.1 g/dL (13.0-16.5); Lymphocyte # 3.46 X10^3/ul (0.83-4.51); Lymphocyte % 31.9 % (19-41); Mean Corp Hgb Conc 34.1 g/dL (32-36); Mean Corpuscular Hgb 30.1 pg (27.0-32.0); Mean Corpuscular Volume 88.5 fL (80-94); Mean Platelet Vol. 9.8 fl (6.2-12.0); Monocyte# 1.03 X10^3/uL; Monocyte% 9.5 % (0-10); NRBC Flagged by Analyzer 0 % (0-5); Neutrophil % 53.3 % (47-70); Platelet Count 294 K/mm3 (150-450); RBC Distribution Width CV 13.1 % (11.6-14.6); RBC Distribution Width SD 42.4 fl (35.1-43.9); Red Blood Count 4.68 M/mm3 (4.6-6.2); White Blood Count 10.9 K/mm3 (4.4-11.0)
[2025-02-09 13:55] VITALS: BP 140/85; PULSE 87; RESP 16; O2SAT 97
[2025-02-09 13:58] LABS: Anion Gap 12 (5-15); BUN 12 mg/dL (4-19); BUN/Creat Ratio 14.8 RATIO (10-20); Calcium,Total 9.1 mg/dL (7.6-11.0); Carbon Dioxide 21.6 mmol/L (21.0-32.0); Chloride 101 mmol/L (98-108); Creatinine, Serum 0.83 mg/dL (0.70-1.20); EST Glomerular Filtration Rate 102 (>60); Estimated Creatinine Clearance 99.77 ml/min (50-250); Glucose 115 mg/dL (70-99); Potassium 4.3 mmol/L (3.3-5.1); Sodium Level 135 mmol/L (133-145); Troponin T High Sensitivity < 6 ng/L (<=22)
[2025-02-09 14:56] VITALS: BP 178/107; PULSE 84; RESP 13; O2SAT 97
[2025-02-09 14:57] VITALS: BP 121/81; PULSE 67; RESP 14; TEMP 36.1; O2SAT 97
== END 2025-02-09 15:05 | disposition home or self-care (01) ==
PROVIDERS: Emergency Provider Emergency Medicine; PCP Student in an Organized Health Care Education/Training Program; Referring Provider Emergency Medicine; Visit Provider Emergency Medicine
DX: R07.9 Chest pain, unspecified (principal); M75.22 Bicipital tendinitis, left shoulder; F17.210 Nicotine dependence, cigarettes, uncomplicated
CPT/HCPCS: 71045; 80048; 84484; 85025; 93005; 96374; 99284; A4216